=== PATIENT | female | born 1970 | race Caucasian/White ===

== ENCOUNTER → 2017-04-12 | Outpatient (CLI) | payer OTHER ==
--- NOTE | 2017-04-13 07:47 | MM ---
Reason for exam: screening (asymptomatic). Last mammogram was performed 1 year ago. History: Family history of breast cancer in maternal grandmother. Physical Findings: A clinical breast exam by your physician is recommended on an annual basis and results should be correlated with mammographic findings. MG Screening Mammo w CAD Bilateral CC and MLO view(s) were taken. XCCL view(s) were taken of the left breast. Prior study comparison: March 30, 2016, left breast MG work up mamm w CAD LT. March 26, 2016, bilateral MG screening mammo w CAD. The breast tissue is heterogeneously dense. This may lower the sensitivity of mammography. There is no discrete abnormality. No significant changes when compared with prior studies. ASSESSMENT: Negative, BI-RAD 1 RECOMMENDATION: Routine screening mammogram of both breasts in 1 year.
== END | disposition home or self-care (01) ==
LOC: RADMAMWWP 12:34
PROVIDERS: ATTEND Internal Medicine
DX: Z12.31 Encounter for screening mammogram for malignant neoplasm of breast (principal)

== ENCOUNTER → 2017-05-24 | Outpatient (CLI) | payer OTHER ==
--- NOTE | 2017-05-24 20:32 | CONS ---
CONSULTATION HISTORY: This is a 47-year-old female patient coming in for evaluation of chronic difficulties in sleep initiation and maintenance. She has some degree of insomnia as the patient is unable to sleep more than 5 hours per night. She typically goes to bed around 10:30 p.m. and she wakes up 6:00 am in the morning. She however estimates her sleeping hours to be somewhere between 3-5 hours. It takes her more than 30 minutes to fall asleep, at times it takes her up to an hour or two. She is very restless. She has some symptoms of restless legs in the lower extremities, however at night if her symptoms gets worse, she tosses and turns and kicks during sleep. She also clenches and grinds her teeth and this has become an ongoing problem. She has been treated for anxiety and depression. Currently she is on Xanax and she takes it 0.25 mg on an as needed basis and typical she requires it once or twice a week. Recently she has been started also on Lexapro 5 mg by her primary care physician. She has symptoms of ADD and she has been treated with dexamphetamine 20 mg on a daily basis. She has occasional snoring and no witnessed apneas. No waking up choking or gasping for air. No nocturia. Grinding of the teeth is an ongoing problem. Very restless during sleep per . Occasionally she sleep talks but she does not do any sleep walking. Her weight has been up by around 15 pounds over the past 1 year. No falling asleep while driving. No substance abuse. No alcoholism. No head trauma. No nocturnal heartburn. No nocturnal panic attacks. No chest pain at night time. PAST MEDICAL HISTORY: RLS, ADD and clenching/grinding. PAST SURGICAL HISTORY: Cholecystectomy. ALLERGIES: DRUG ALLERGIES ARE TO CODEINE. OUTPATIENT MEDICATIONS: Include: 1. Lexapro 5 daily. 2. Dextroamphetamine 20 mg twice a day. 3. Pantoprazole 40 mg p.o. daily. 4. Xanax 0.25 mg on a p.r.n. basis. SOCIAL HISTORY: The patient is a ex-smoker. No history of alcohol. No history of IV drugs. FAMILY HISTORY: Negative for sleep apnea. Positive for heart disease and hypertension. REVIEW OF SYSTEMS: 12-point review of system was done. Positive findings are mentioned above. HISTORY OF PRESENT ILLNESS: BP is 118/74, pulse 85, respirations 16, temp 98.3, O2 saturation 98% on room air. Actual weight is 153, height is 64 inches, neck 14-3/4 of an inch. BMI 26.3, Fairview score is at 3. General appearance: Calm, comfortable. HEENT: Mallampati Class 3-4 with no goiter, no neck mass. LUNGS: Clear to auscultation. HEART: Sounds are regular, rate and rhythm. Normal S1, S2. Soft, nontender. No organomegaly. No rebound tenderness, no guarding. EXTREMITIES: No edema. No cyanosis or clubbing. IMPRESSION: 1. Chronic insomnia with difficulty in sleep induction and maintenance. Rule out underlying restless legs syndrome/periodic limb movements contributing to her insomnia. Other factors would include chronic anxiety and bruxism as the patient has significant clenching and grinding of her teeth. Unable to wear a bite guard. Sleep apnea is doubtful at this stage. 2. ADD currently on dexamphetamine. PLAN: The patient may benefit from treating her anxiety more effectively. She has been started on Lexapro 5 mg and the dose can be gradually titrated up to 10 mg and even to 20 mg depending on clinical response. Meanwhile I think it is reasonable to put this patient on clonazepam at a lower dose. This should help the patient with her restlessness in the lower extremities, bruxism/grinding and at the same time induce and maintain sleep and prevent some of the nocturnal arousals that she has been experiencing. Based on that, I will start the patient on 0.5 mg clonazepam to be taken around 9:30 p.m. Sleep hygiene issues were discussed with her at length. She will be seeing psychiatric. She will benefit from relaxation techniques. Sleep apnea evaluation at later stage if the above-mentioned intervention failed to improve her ability to maintain sleep. We will continue to follow. MMODL / IJN: [id number] /
== END ==
LOC: SLEEP 13:51
PROVIDERS: ATTEND Internal Medicine
DX: G47.00 Insomnia, unspecified (principal); F98.8 Other specified behavioral and emotional disorders with onset usually occurring in childhood and adolescence; Z88.5 Allergy status to narcotic agent; Z79.899 Other long term (current) drug therapy
CPT/HCPCS: 99211

== ENCOUNTER → 2018-05-24 | Outpatient (CLI) | payer OTHER ==
--- NOTE | 2018-05-25 13:20 | MM ---
Reason for exam: screening (asymptomatic). Last mammogram was performed 1 year and 1 month ago. History: Family history of breast cancer in maternal grandmother. Physical Findings: A clinical breast exam by your physician is recommended on an annual basis and results should be correlated with mammographic findings. MG Screening Mammo w CAD Bilateral CC and MLO view(s) were taken. Prior study comparison: April 12, 2017, bilateral MG screening mammo w CAD. March 30, 2016, left breast MG work up mamm w CAD LT. The breast tissue is heterogeneously dense. This may lower the sensitivity of mammography. No significant changes when compared with prior studies. ASSESSMENT: Negative, BI-RAD 1 RECOMMENDATION: Routine screening mammogram of both breasts in 1 year.
== END | disposition home or self-care (01) ==
LOC: RADMAMWWP 07:26
PROVIDERS: ATTEND Internal Medicine
DX: Z12.31 Encounter for screening mammogram for malignant neoplasm of breast (principal)
CPT/HCPCS: 77067

== ENCOUNTER 2019-04-02 12:21 | Day surgery (SDC) | payer OTHER ==
[2019-03-29 14:35] VITALS: BMI 21.6
[~2019-04-02 12:21] MED LIST: LACTATED RINGERS 1,000 ML IV SCH
[2019-04-02] MEDS ORDERED: LIDOCAINE 1% 20 ML VIAL (10MG/ML) FOR IV START INTRADERMA ONE (12:48)
[2019-04-02 12:52] VITALS: RESP 16; TEMP 97.8
[2019-04-02] MEDS ORDERED: fentaNYL (PF) 50 MCG/ML 2 ML AMP ONE (14:08)
[2019-04-02] MEDS ORDERED: MIDAZOLAM 2 MG/2 ML VIAL ONE (14:08)
[2019-04-02] MEDS ORDERED: PROPOFOL 10 MG/ML 20 ML VIAL IV ONE (14:08)
--- NOTE | 2019-04-02 15:03 | P.PCN ---
Date of Procedure: 04/02/19 Description of Procedure: Brief history: Patient is a pleasant scheduled for an elective upper endoscopy as well as colonoscopy as a part of evaluation of GERD and prior history of colon polyps. The patient reports a long history of gastroesophageal reflux disease. Previously she has been on omeprazole therapy. Currently the patient reports trying to control diet modification. She also reports multiple colonoscopies in the past with polyps removed. She believes her last colonoscopy was 5 years ago no polyps were found. Procedure performed: Esophagogastroduodenoscopy with biopsy Colonoscopy Estimated blood loss: Minimal. Preoperative diagnosis: Anesthesia: MAC Procedure: After informed consent was obtained from the patient was brought into the endoscopy unit and IV sedation was administered by anesthesia under continuous monitoring. Initially upper endoscopy was done. The Olympus GF 190 video endoscope was inserted inserted into the mouth and esophagus intubated without any difficulty and was gradually advanced into the stomach and duodenum and carefully examined. The bulb and second part of the duodenum appeared normal and was biopsied. The scope was then withdrawn into the stomach adequately insufflated with air and upon careful examination the antrum and body, cardia and fundus appeared normal, there was however diffuse mild erythema, with biopsies of the antrum and body taken for mild gastritis. The scope was then withdrawn into the esophagus. The GE junction was located at 39 cm to the incisors and biopsies. It appeared regular with no erythema erosions or ulcerations. Rest of the esophagus appeared normal. Patient tolerated the procedure well. At this time the patient continued to remain sedation. Initial digital rectal examination was normal. Olympus CF 190 video colonoscope was then inserted into the rectum and gradually advanced to the cecum without any difficulty. Careful examination was performed as the scope was gradually being withdrawn. The prep was excellent. The cecum, ascending colon, transverse colon, descending colon, sigmoid colon and rectum appeared normal. Diminutive 2 mm ascending sessile colon polyp removed with cold forceps polypectomy. 3 mm hepatic flexure sessile polyp removed with cold forcep polypectomy. 4 mm transverse colon sessile polyp removed with cold forcep polypectomy. 3 mm sigmoid colon polyp removed with cold forcep polypectomy. Mild sigmoid diverticulosis. Retroflexion was performed in the rectum and no lesions were noted. Patient tolerated the procedure well. Impression: 1. Cold forcep polypectomy of polyps in the ascending colon, hepatic flexure, transverse colon and sigmoid colon. 2. Mild sigmoid diverticulosis. Recommendations: Findings of this examination were discussed with the patient as well as her son. Okay to resume high-fiber diet. Await pathology from polypectomies. Into a repeat colonoscopy in 3 years pending pathology from polypectomies.
[2019-04-02 15:20] VITALS: BP 116/66; PULSE 84
== END 2019-04-02 15:35 | disposition home or self-care (01) ==
LOC: ORWHC2ENDO 12:21
PROVIDERS: ATTEND Internal Medicine
DX: Z12.11 Encounter for screening for malignant neoplasm of colon (principal); K29.50 Unspecified chronic gastritis without bleeding; D12.3 Benign neoplasm of transverse colon; D12.2 Benign neoplasm of ascending colon; D12.5 Benign neoplasm of sigmoid colon; K57.30 Diverticulosis of large intestine without perforation or abscess without bleeding; K21.0 Gastro-esophageal reflux disease with esophagitis; F17.210 Nicotine dependence, cigarettes, uncomplicated; G43.909 Migraine, unspecified, not intractable, without status migrainosus; I73.00 Raynaud's syndrome without gangrene; Z86.010 Personal history of colon polyps; Z88.5 Allergy status to narcotic agent; Z79.899 Other long term (current) drug therapy
CPT/HCPCS: 88305; 45380; 43239; J2250; J3010; J2704

== ENCOUNTER → 2019-05-26 | Outpatient (CLI) | payer OTHER ==
--- NOTE | 2019-05-28 10:40 | MM ---
Reason for exam: screening (asymptomatic). Last mammogram was performed 1 year ago. History: Family history of breast cancer in maternal grandmother. Physical Findings: A clinical breast exam by your physician is recommended on an annual basis and results should be correlated with mammographic findings. MG Screening Mammo w CAD Bilateral CC and MLO view(s) were taken. Prior study comparison: May 24, 2018, bilateral MG screening mammo w CAD. April 12, 2017, bilateral MG screening mammo w CAD. The breast tissue is heterogeneously dense. This may lower the sensitivity of mammography. There is no discrete abnormality. No significant changes when compared with prior studies. ASSESSMENT: Negative, BI-RAD 1 RECOMMENDATION: Routine screening mammogram in 1 year.
== END | disposition home or self-care (01) ==
LOC: RADMAMWWP 08:41
PROVIDERS: ATTEND Obstetrics & Gynecology
DX: Z12.31 Encounter for screening mammogram for malignant neoplasm of breast (principal)
CPT/HCPCS: 77067

== ENCOUNTER → 2019-11-28 | Outpatient (CLI) | payer OTHER ==
[2019-11-29 01:54] LABS: Estradiol 69.7 pg/mL
[2019-11-29 01:55] LABS: Follicle Stimulating Hormone 39.5 mIU/mL
== END | disposition home or self-care (01) ==
LOC: LABWHC1 15:49
PROVIDERS: ATTEND Obstetrics & Gynecology
DX: N95.1 Menopausal and female climacteric states (principal); E34.50 Androgen insensitivity syndrome, unspecified; R61 Generalized hyperhidrosis
CPT/HCPCS: 36415; 82670; 83001; 84144; 84402; 84403

== ENCOUNTER → 2020-08-25 | Outpatient (CLI) | payer OTHER ==
--- NOTE | 2020-08-25 11:43 | MM ---
Reason for exam: screening (asymptomatic). Last mammogram was performed 1 year and 3 months ago. History: Patient is postmenopausal. Family history of breast cancer in maternal grandmother. Taking hormonal contraceptives beginning at age 48. Taking progesterone beginning at age 48. Physical Findings: A clinical breast exam by your physician is recommended on an annual basis and results should be correlated with mammographic findings. MG 3D Screening Mammo W/Cad Bilateral CC and MLO view(s) were taken. Prior study comparison: May 26, 2019, bilateral MG screening mammo w CAD. May 24, 2018, bilateral MG screening mammo w CAD. The breast tissue is heterogeneously dense. This may lower the sensitivity of mammography. There is no discrete abnormality. ASSESSMENT: Negative, BI-RAD 1 RECOMMENDATION: Routine screening mammogram of both breasts in 1 year.
== END | disposition home or self-care (01) ==
LOC: RADMAMWWP 10:50
PROVIDERS: ATTEND Obstetrics & Gynecology
DX: Z12.31 Encounter for screening mammogram for malignant neoplasm of breast (principal)
CPT/HCPCS: 77063; 77067

== ENCOUNTER 2022-12-17 13:17 | Emergency (ER) | payer OTHER ==
[2022-12-17 13:50] VITALS: BP 157/98; PULSE 88; RESP 16; TEMP 97.5
--- NOTE | 2022-12-17 14:27 | ED ---
General Adult HPI - General Chief complaint: Psychiatric Symptoms Stated complaint: Petition Time Seen by Provider: 12/17/22 13:50 Source: patient, police, RN notes reviewed, old records reviewed Mode of arrival: ambulatory Limitations: no limitations - History of Present Illness Initial comments: This is a 52-year-old female who is brought in by police under a petition and court order. Petition states that the patient made statements that she wants to . Patient states that she is not suicidal has never been suicidal she states she did say she wanted to because she is under quite a bit of distress because her ideas been stolen and money is been stolen from her she's been very stressed about this. Patient states the rest of the petition talking about some shadow government is something she is unaware of where that came from. She denies any police shadow government. Patient denies any illegal drug use patient denies any drinking today. Patient states she is 100% safe and has no prior mental health problems never been depressed or anxious and denies any medications for metal health issues. Patient denies any physical complaints today. - Related Data Home Medications Medication Instructions Recorded Confirmed Dextroamphetamine/Amphetamine 20 mg PO BID 03/29/19 04/02/19 [Adderall] Triamterene(Dose Unknown) 1 tab PO DAILY 03/29/19 04/02/19 Zinc Gluconate [Zinc] 25 mg PO DAILY 03/29/19 04/02/19 Allergies Allergy/AdvReac Type Severity Reaction Status Date / Time codeine Allergy Nausea/rash Verified 03/29/19 14:28 Review of Systems ROS Statement: Those systems with pertinent positive or pertinent negative responses have been documented in the HPI. ROS Other: All systems not noted in ROS Statement are negative. Past Medical History Past Medical History: GERD/Reflux Additional Past Medical History / Comment(s): hx migraines, varicose veins, constipation, raynauds, History of Any Multi-Drug Resistant Organisms: None Reported Past Surgical History: Cholecystectomy Past Anesthesia/Blood Transfusion Reactions: Motion Sickness Past Psychological History: Anxiety Past Alcohol Use History: None Reported Past Drug Use History: None Reported - Past Family History Mother Family Medical History: No Reported History General Exam - General Exam Comments Initial Comments: GENERAL: Patient is well-developed and well-nourished. Patient is nontoxic and well- hydrated and is in no acute distress. ENT: Neck is soft and supple. No significant lymphadenopathy is noted. Oropharynx is clear. Moist mucous membranes. Neck has full range of motion without eliciting any pain. EYES: The sclera were anicteric and conjunctiva were pink and moist. Extraocular movements were intact and pupils were equal round and reactive to light. Eyelids were unremarkable. PULMONARY: Unlabored respirations. Good breath sounds bilaterally. No audible rales rhonchi or wheezing was noted. CARDIOVASCULAR: There is a regular rate and rhythm without any murmurs gallops or rubs. ABDOMEN: Soft and nontender with normal bowel sounds. SKIN: Skin is clear with no lesions or rashes and otherwise unremarkable. NEUROLOGIC: Patient is alert and oriented x3. Cranial nerves II through XII are grossly intact. Motor and sensory are also intact. Normal speech, volume and content. Symmetrical smile. MUSCULOSKELETAL: Normal extremities with adequate strength and full range of motion. LYMPHATICS: No significant lymphadenopathy is noted PSYCHIATRIC: Normal psychiatric evaluation. Limitations: no limitations Course Vital Signs 12/17/22 13:47 Temperature 97.5 F L Pulse Rate 88 Respiratory 16 Rate Blood Pressure 157/98 O2 Sat by Pulse 98 Oximetry Medical Decision Making - Medical Decision Making Was pt. sent in by a medical professional or institution (, PA, RAIL SPECIALIST, urgent care, hospital, or senior care...) When possible be specific @ -No Did you speak to anyone other than the patient for history (EMS, parent, family, police, friend...)? What history was obtained from this source @ -No Did you review nursing and triage notes (agree or disagree)? Why? @ -I reviewed and agree with nursing and triage notes Were old charts reviewed (outside hosp., previous admission, EMS record, old EKG, old radiological studies, urgent care reports/EKG's, senior care records)? Report findings @ -No old charts were reviewed Differential Diagnosis (chest pain, altered mental status, abdominal pain women, abdominal pain men, vaginal bleeding, weakness, fever, dyspnea, syncope, headache, dizziness, GI bleed, back pain, seizure, CVA, palpatations, mental health, musculoskeletal)? @ -Differential Mental Health Depression, anxiety, bipolar, psychosis, schizophrenia, borderline personality, situational depression, adjustment disorder, behavioral disorder, brain tumor, malingering, substance abuse, encephalopathy, medication reaction, dementia, hypothyroidism, degenerative neurologic disorder, lupus.... This is not meant to be all-inclusive list EKG interpreted by me (3pts min.). @ -As above X-rays interpreted by me (1pt min.). @ -None done CT interpreted by me (1pt min.). @ -None done U/S interpreted by me (1pt. min.). @ -None done What testing was considered but not performed or refused? (CT, X-rays, U/S, labs)? Why? @ -None What meds were considered but not given or refused? Why? @ -None Did you discuss the management of the patient with other professionals (professionals i.e. DrBeth, PA, RAIL SPECIALIST, lab, RT, psych nurse, social work therapist, immigration lawyer, teacher, tax revenue officer, medical case worker)? Give summary @ -I spoke with the EPS nurse about this case Was smoking cessation discussed for >3mins.? @ -No Was critical care preformed (if so, how long)? @ -No Were there social determinants of health that impacted care today? How? (Homelessness, low income, unemployed, alcoholism, drug addiction, transportation, low edu. Level, literacy, decrease access to med. care, snf, rehab)? @ -No Was there de-escalation of care discussed even if they declined (Discuss DNR or withdrawal of care, Hospice)? DNR status @ -No What co-morbidities impacted this encounter? (DM, HTN, Smoking, COPD, CAD, Cancer, CVA, ARF, Chemo, Hep., AIDS, mental health diagnosis, sleep apnea, morbid obesity)? @ -None Was patient admitted / discharged? Hospital course, mention meds given and route, prescriptions, significant lab abnormalities, going to OR and other pertinent info. @ -I evaluated the patient and she denied being suicidal and denied a lot of but was in the petition. Patient states she states she's been under a lot of stress lately and she made the comment that she wishes she was . Patient states she only sided like everybody else has it did not really mean it. EPS evaluated the patient was in agreement that the patient could safely be going home with a safety plan. Undiagnosed new problem with uncertain prognosis? @ -No Drug Therapy requiring intensive monitoring for toxicity (Heparin, Nitro, Insulin, Cardizem)? @ -No Were any procedures done? @ -No Diagnosis/symptom? @ -Stress and adjustment reaction Acute, or Chronic, or Acute on Chronic? @ -Acute Uncomplicated (without systemic symptoms) or Complicated (systemic symptoms)? @ -Uncomplicated Side effects of treatment? @ -No Exacerbation, Progression, or Severe Exacerbation? @ -No Poses a threat to life or bodily function? How? (Chest pain, [place], [place], pneumonia, PE, COPD, DKA, ARF, appy, cholecystitis, CVA, Diverticulitis, Homicidal, Suicidal, threat to staff... and all critical care pts) @ -No - Lab Data Lab Results 12/17/22 Range/Units 14:24 Urine Opiates Screen Not Detected (NotDetected) Ur Oxycodone Screen Not Detected (NotDetected) Urine Methadone Screen Not Detected (NotDetected) Ur Propoxyphene Screen Not Detected (NotDetected) Ur Barbiturates Screen Not Detected (NotDetected) U Tricyclic Antidepress Not Detected (NotDetected) Ur Phencyclidine Scrn Not Detected (NotDetected) Ur Amphetamines Screen Detected H (NotDetected) U Methamphetamines Scrn Not Detected (NotDetected) U Benzodiazepines Scrn Not Detected (NotDetected) Urine Cocaine Screen Not Detected (NotDetected) U Marijuana (THC) Screen Detected H (NotDetected) Disposition Clinical Impression: Stress and adjustment reaction Disposition: HOME SELF-CARE Instructions (If sedation given, give patient instructions): Stress (ED), Suicide Prevention (ED) Is patient prescribed a controlled substance at d/c from ED?: No Referrals: Germania Nixon MD [Primary Care Provider] - 1-2 days Time of Disposition: 16:40
[2022-12-17 15:25] LABS: Amphetamine Screen,Urine Detected (NotDetected); Barbiturate Screen,Urine Not Detected (NotDetected); Benzodiazepines Screen,Urine Not Detected (NotDetected); Cocaine Screen,Urine Not Detected (NotDetected); Methadone Screen, Urine Not Detected (NotDetected); Opiate Screen,Urine Not Detected (NotDetected); Oxycodone Screen, Urine Not Detected (NotDetected); Phencyclidine Screen,Urine Not Detected (NotDetected); Tricyclic Antidepressant,Urine Not Detected (NotDetected); Urn Cannabinoid Scrn Detected (NotDetected)
[2022-12-18 02:50] LABS: Urine Alcohol Negative (Negative); Urine Barbiturate Negative (Negative); Urine Cocaine Negative (Negative); Urine Methadone Negative (Negative); Urine Opiates Negative (Negative); Urine Phencyclidine Negative (Negative)
== END 2022-12-17 17:14 | disposition home or self-care (01) ==
LOC: EC 13:17
DX: F43.20 Adjustment disorder, unspecified (principal); K21.9 Gastro-esophageal reflux disease without esophagitis; F41.9 Anxiety disorder, unspecified; Z79.899 Other long term (current) drug therapy; Z88.8 Allergy status to other drugs, medicaments and biological substances; Z90.49 Acquired absence of other specified parts of digestive tract
CPT/HCPCS: 80306; 82075; 99285

== ENCOUNTER → 2023-03-10 | Outpatient (CLI) | payer OTHER ==
--- NOTE | 2023-03-10 14:37 | CTL ---
EXAMINATION TYPE: CT Low Dose Lung DATE OF EXAM ORDERED: 03/10/2023 COMPARISON: None HISTORY: . Low Dose CT Lung Screening IV CONTRAST USED: None. SCREENING VISIT: First visit COMPARISON: None. TECHNIQUE: Low dose computed tomography scan was performed through the chest at 1 millimeter thick se ctions and reconstructed images in the coronal plane at [address] DIAGNOSTIC QUALITY: Satisfactory FINDINGS: LUNG NODULES: Not presentLeft lung: no nodules identified.Right lung: no nodules identified. LUNGS: COPD: Severity: Mild Fibrosis: Severity: Mild Lymph nodes: None Other findings: None RIGHT PLEURAL SPACE: Effusion: None Calcification: None Thickening: None Pneumothorax: None LEFT PLEURAL SPACE: Effusion: None Calcification: None Thickening: None Pneumothorax: None HEART: Heart Size: Mildly enlarged Coronary calcification: Mild Pericardial effusion: None OTHER FINDINGS: Upper abdomen: No significant abnormality Bony thorax: Degenerative changes Supraclavicular region: No significant abnormalityOther: No significant abnormalityI IMPRESSION: No discrete pulmonary nodule evident this time. Mild fibrosis and COPD changes. FOLLOW UP CT CHEST RECOMMENDATION: Follow-up screening in one year. Smoking cessation recommended. CT LUNG RAD: LUNG RAD CATEGORY 1 negative
--- NOTE | 2023-03-10 20:01 | BD ---
EXAMINATION TYPE: Axial Bone Density DATE OF EXAM: 03/10/2023 CLINICAL HISTORY: 53 years old Female. ICD-10 CODE: [id number] OSTEO OF R HIP Height: 63.25" Weight: 128 lbs FRAX RISK QUESTIONS: Alcohol (3 or more units per day): No Family History (Parent hip fracture): No Glucocorticoids (More than 3mos): No (Ex: prednisone, prednisolone, methylprednisolone, dexamethasone, and hydrocortisone). History of Fracture in Adulthood: Yes, bilateral clavicles Secondary Osteoporosis: 1. Type 1 Diabetes: No 2. Hyperthyroidism: No 3. Menopause before 45: No 4. Malnutrition: No 5. Chronic liver disease: No Rheumatoid Arthritis: No Current Tobacco Use: Yes RISK FACTORS HISTORY OF: Hip Fracture (Right/Left): No Spine Fracture: No History of Wrist Fracture: No Surgery to Spine/Hip(right/left)/Wrist (right/left): No Family History of Osteoporosis: Yes, mother Active: Yes Diet low in dairy products/other sources of calcium: Yes Postmenopausal woman: Yes Lost more than 2 inches in height since high school: Yes Frequent falls: No Poor Health: No Hyperparathyroidism: No Adrenal Insufficiency: No MEDICATIONS: Prednisone or other steroids: No Thyroid Medications: No Osteoporosis Medications: No Additional Medications: Clarinex, eye drops, Adderall, diuretic, pepcid, multivitamin Additional History: None EXAM MEASUREMENTS: Bone mineral densitometry was performed using the [employer]lect[employer] System. Bone mineral density as measured about the Lumbar spine is: ----- L1-L4(G/cm2): 1.161 T Score Values are as follows: ----- L1: -0.2 ----- L2: -0.2 ----- L3: -0.1 ----- L4: -0.2 ----- L1-L4: -0.2 Z Score Values are as follows: ----- L1: 0.6 ----- L2: 0.6 ----- L3: 0.7 ----- L4: 0.6 ----- L1-L4: 0.6 BASELINE Bone mineral density about the R hip (g/cm2): 0.834 Bone mineral density about the L hip (g/cm2): 0.832 T Score values are as follows: -----R Neck: -1.8 -----L Neck: -1.9 -----R Total: -1.4 -----L Total: -1.4 Z Score values are as follows: -----R Neck: -0.8 -----L Neck: -0.7 -----R Total: -0.7 -----L Total: -0.7 BASELINE FRAX%s: The graph provided illustrates a 10.6% chance for a major osteoporotic fx and a 1.4% chance f or the hips probability for fx in 10 years time. IMPRESSION: Osteopenia (T Score between -2.5 and -1). There is slightly increased risk of fracture and the patient may be considered for treatment. Re-Screen 2-5 years. NOTE: T-SCORE=SD OF THE YOUNG ADULT MEAN.
--- NOTE | 2023-03-11 08:39 | MM ---
Reason for Exam: Screening (asymptomatic). Last mammogram was performed 2 year(s) and 6 month(s) ago. Patient History: Menarche at age 15. First Full-Term at age 22. Postmenopausal. Progesterone, starting at age 48. Hormonal Contraceptives, starting at age 48. Maternal grandmother had breast cancer. Risk Values: Geeta 5 year model risk: 0.9%. NCI Lifetime model risk: 7.1%. Prior Study Comparison: 05/24/2018 Bilateral Screening Mammogram, [facility]. 05/26/2019 Bilateral Screening Mammogram, [facility]. 08/25/2020 Bilateral Screening Mammogram, [facility]. Tissue Density: The breast tissue is heterogeneously dense. This may lower the sensitivity of mammography. Findings: Analyzed By CAD. There is no suspicious group of microcalcifications or new suspicious mass in either breast. Overall Assessment: Negative, BI-RAD 1 Management: Screening Mammogram of both breasts in 1 year. . Patient should continue monthly self-breast exams. A clinical breast exam by your physician is recommended on an annual basis. This exam should not preclude additional follow-up of suspicious palpable abnormalities. Note on Geeta scores and lifetime risk: 1. A Geeta score greater than 3% is considered moderate risk. If this is the case, consider specialist referral to assess eligibility for a risk reducing agent. 2. If overall lifetime risk for the development of breast cancer is 20% or higher, the patient may qualify for future screening with alternating mammogram and breast MRI. Electronically signed and approved by: Robert Aguilar M.D. Radiologis
== END | disposition home or self-care (01) ==
LOC: RADMAMWWP 12:32
PROVIDERS: ATTEND Internal Medicine
DX: Z12.31 Encounter for screening mammogram for malignant neoplasm of breast (principal); Z12.2 Encounter for screening for malignant neoplasm of respiratory organs; F17.210 Nicotine dependence, cigarettes, uncomplicated; J44.9 Chronic obstructive pulmonary disease, unspecified; J84.10 Pulmonary fibrosis, unspecified; M85.89 Other specified disorders of bone density and structure, multiple sites; Z80.3 Family history of malignant neoplasm of breast; Z78.0 Asymptomatic menopausal state
CPT/HCPCS: 71271; 77063; 77067; 77080

== ENCOUNTER → 2023-04-29 | Outpatient (CLI) | payer OTHER ==
--- NOTE | 2023-04-30 11:16 | CA ---
Transthoracic Echo Report Name: Chula Pearce Age: 53 Gender: F : 1970 Exam Date: 04/29/2023 11:29 Exam Location: [facility] Ht (in): 64 Wt (lb): 127 Ordering Physician: Germania Nixon MD Attending/Referring Phys: Carpet Measurer Kaela Golden RDCS Procedure CPT: Indications: R00.1 bradycardia Cardiac Hx: Technical Quality: Fair Contrast 1: Total Dose (mL): Contrast 2: Total Dose (mL): MEASUREMENTS (Male / Female) Normal Values 2D ECHO LV Diastolic Diameter PLAX 3.0 cm 4.2 - 5.9 / 3.9 - 5.3 cm LV Systolic Diameter PLAX 2.1 cm IVS Diastolic Thickness 0.9 cm 0.6 - 1.0 / 0.6 - 0.9 cm LVPW Diastolic Thickness 0.7 cm 0.6 - 1.0 / 0.6 - 0.9 cm LV Relative Wall Thickness 0.5 RV Internal Dim ED PLAX 3.0 cm LA Volume 28.2 cm??? 18 - 58 / 22 - 52 cm??? M-MODE Aortic Root Diameter MM 2.5 cm LA Systolic Diameter MM 2.9 cm LA Ao Ratio MM 1.2 AV Cusp Separation MM 1.9 cm DOPPLER AV Peak Velocity 117.8 cm/s AV Peak Gradient 5.5 mmHg AV Mean Velocity 91.4 cm/s AV Mean Gradient 3.5 mmHg AV Velocity Time Integral 25.1 cm LVOT Peak Velocity 84.3 cm/s LVOT Peak Gradient 2.8 mmHg LVOT Velocity Time Integral 15.1 cm MV Area PHT 5.2 cm??? Mitral E Point Velocity 72.9 cm/s Mitral A Point Velocity 83.6 cm/s Mitral E to A Ratio 0.9 MV Deceleration Time 146.2 ms MV E' Velocity 8.3 cm/s Mitral E to MV E' Ratio 8.8 TR Peak Velocity 233.8 cm/s TR Peak Gradient 21.9 mmHg Right Ventricular Systolic Press 26.9 mmHg FINDINGS Left Ventricle Normal Left ventricular size, wall thickness, systolic function with no obvious regional wall motion abnormalities. Normal Left ventricular diastolic filling pattern. Left ventricular ejection fraction is estimated at 55-60 %. Right Ventricle Normal right ventricular size and function. Right ventricular systolic pressure within normal limits. Right Atrium Normal right atrial size. Left Atrium Normal left atrial size. Mitral Valve Structurally normal mitral valve. No mitral stenosis, regurgitation or prolapse. Aortic Valve Trileaflet aortic valve. No aortic valve stenosis or regurgitation. Tricuspid Valve Structurally normal tricuspid valve. Mild tricuspid regurgitation. Pulmonic Valve Trace pulmonic regurgitation. Pericardium No pericardial effusion. Aorta Normal size aortic root and proximal ascending aorta. CONCLUSIONS Normal LV size and systolic function Previewed by: Dr. Randy Roth MD (Electronically Signed) Final Date: 30 April 2023 11:16
== END | disposition home or self-care (01) ==
LOC: RADECHMAIN 11:22
PROVIDERS: ATTEND Internal Medicine
DX: R00.1 Bradycardia, unspecified (principal)
CPT/HCPCS: 93306